=== PATIENT | male | born 1970 | race Caucasian/White ===

== ENCOUNTER 2016-12-12 10:49 | Emergency (ER) | payer OTHER, BC ==
[~2016-12-12] VITALS: Ht 175.3 cm; Wt 85.3 kg
[2016-12-12 10:57] VITALS: TEMP 36.7; Ht 175.3 cm; Wt 85.3 kg
[2016-12-12] MEDS ORDERED: METH4PAK PO (11:22)
[2016-12-12] MEDS ORDERED: EPP3/2 IM (11:22)
[2016-12-12] MEDS ORDERED: RANITIDINE HCL 150 MG TAB PO ONE (11:30)
[2016-12-12] MEDS ORDERED: NAPR1TAB9 PO (11:39)
[2016-12-12] MEDS ORDERED: CARB200T PO (11:39)
[2016-12-12 11:48] VITALS: BP 125/80; PULSE 61; O2SAT 98
--- NOTE | 2016-12-12 15:08 | EMERGENCY ROOM VISIT NOTE ---
History First contact with patient: 11:00 Chief Complaint: BITE Stated Complaint: ITCHY ALL OVER- HORNET STING History of Present Illness The patient is a 46 year old male who presents to the Emergency Room with complaints of symptoms after what he suspects was a bee sting to his left calf also one hour prior to arrival. The patient reports that he felt something sharp on the back of his leg. Within a short period of time, he then started to develop itchiness all over his body. He never noticed any chest palpitations , shortness of breath, lip/tongue/throat swelling, blurred vision or other significant symptoms except for pruritus. The patient has not taken any medications for his symptoms. The patient reports multiple episodes of bee stings in the past. He has never experienced any allergic reaction with his bee stings. He denies any other recent infections or illness. He has no additional environmental allergens. The patient reports that this injury did happen at work. Review of Systems 10 system review was performed and was negative except for pertinent positives and negatives as indicated in history of present illness Past Medical/Surgical History Medical Problems: (1) Foc Part Epilepsy/Synd W Comp Part Seizures W/O Intract Epil (2) Malignant Neoplasm Of Brain, Unspecified Surgical Problems: (1) History of brain surgery Family History Unremarkable Social History Smoking Status: Never Smoker Alcohol Use: occasionally Marital Status: Housing Status: lives with family Occupation Status: employed Current/Historical Medications Scheduled Carbamazepine (Tegretol), 200 MG PO BID Epinephrine (Epipen), 0.3 MG IM UD Methylprednisolone (Medrol Dosepak), 1 PKT PO UD Naproxen (Aleve), 220 MG PO DAILY Physical Exam Vital Signs Date Time Temp Pulse Resp B/P (MAP) Pulse Ox O2 Delivery O2 Flow Rate FiO2 12/12/16 11:48 61 16 125/80 98 12/12/16 10:57 36.7 81 20 155/80 96 Room Air Pain Rating (0-10): 0 Physical Exam CONSTITUTIONAL: Healthy and well nourished. Alert and oriented X 3 with positive affect. Patient does not appear in any acute distress. HEENT: Normocephalic, atraumatic. Pupils equal, round and reactive. No conjunctival injection. There is no evidence for facial edema. OROPHARYNX: No evidence for angioedema or posterior pharyngeal erythema. NECK: Full active range of motion without discomfort. No JVD or carotid bruits. RESPIRATORY: Clear to auscultation bilaterally with no wheezing, crackles, rhonchi or stridor. CARDIOVASCULAR: Regular rate and rhythm with no murmurs, rubs or gallops. GASTROINTESTINAL: Bowel sounds present in all quadrants. Soft and nontender to palpation. MUSCULOSKELETAL: Full range of motion of all joints without discomfort. INTEGUMENTARY: Examination of the entire body does not show any evidence for urticaria, erythematous rash or significant soft tissue edema. NEUROLOGIC: No focal neurologic deficits noted. Medical Decision & Procedures Medications Administered Medications (Trade) Dose Ordered Sig/Sean Route Start Time Stop Time Status Last Admin Dose Admin Diphenhydramine HCl (Benadryl Cap) 50 mg NOW ONCE PO 12/12/16 11:30 12/12/16 11:31 DC 12/12/16 11:21 50 MG Prednisone (PredniSONE TAB) 50 mg ONE STAT PO 12/12/16 11:16 12/12/16 11:24 DC 12/12/16 11:28 50 MG Ranitidine HCl (zANTac TAB) 150 mg NOW ONCE PO 12/12/16 11:30 12/12/16 11:31 DC 12/12/16 11:21 150 MG ED Course Patient history and physical exam were performed. Nurse's notes were reviewed. Vital signs were reviewed and were normal. O2 saturation and heart rate are normal. The patient denies any significant symptoms on exam, except for mild pruritus. Education was provided regarding generalized allergic reaction to bee stings. The patient was administered prednisone, Benadryl and Zantac for symptoms. He received a prescription for a Medrol Dosepak, and encouraged to take Benadryl and Zantac for baseline antihistamine relief. 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 The patient was instructed to return to the emergency department for any worsening condition, and instructed to avoid future bee stings. The patient was happy with plan of care, and voiced understanding of all discharge instructions. Medical Decision Head Trauma GCS Score: 3 Blood Pressure Screening Patient's blood pressure: Normal blood pressure Impression Primary Impression: Systemic reaction to bee sting Additional Impression: Work related injury Departure Information Dispostion Home / Self-Care Condition FAIR Prescriptions Methylprednisolone (MEDROL DOSEPAK) 4 Mg Amos 1 PKT PO UD for 6 Days, #1 PKT Prov: Rudy Gibson PA 12/12/16 Epinephrine (EPIPEN) 0.3 Mg/0.3 Ml Inj 0.3 MG IM UD, #1 KIT Prov: Rudy Gibson PA 12/12/16 Forms HOME CARE DOCUMENTATION FORM, IMPORTANT VISIT INFORMATION Patient Instructions EpiPen Auto Injector Dc, [facility], ED Bite Sting Insect Gen Allergic React Additional Instructions Suggest taking Benadryl 25-50 mg every 6-8 hours, PLUS Zantac 150 mg twice daily over the next 48 hours. Also take Medrol Dosepak as prescribed - next dose tomorrow morning. Keep cool and avoid hot showers and being outside in the heat. Intermittently apply an ice pack to any areas of intense itch or developing hives. You have also been provided a prescription for EpiPens. If you develop any severe reaction such as heart racing, difficulty breathing, lip/tongue/throat swelling or severe rash swelling, administer the EpiPen and call 911 immediately. Problem Qualifiers Primary Impression: Systemic reaction to bee sting Encounter type: initial encounter Injury intent: accidental or unintentional Qualified Codes: T63.441A - Toxic effect of venom of bees, accidental (unintentional), initial encounter
== END 2016-12-12 11:49 | disposition home or self-care (01) ==
LOC: C.EDB 10:50 → C.EDC 11:49
DX: T63.441A Toxic effect of venom of bees, accidental (unintentional), initial encounter (principal); Z85.841 Personal history of malignant neoplasm of brain; Z98.890 Other specified postprocedural states; G40.209 Localization-related (focal) (partial) symptomatic epilepsy and epileptic syndromes with complex partial seizures, not intractable, without status epilepticus; Z79.899 Other long term (current) drug therapy